=== PATIENT | female | born 1975 | race Caucasian/White ===

== ENCOUNTER 2019-07-15 09:31 | Outpatient (CLI) | payer BC | END 2019-07-15 09:32 | disposition home or self-care (01) | LOC: DTY/OP 09:31 | PROVIDERS: ATTEND Specialist | DX: Z01.818 Encounter for other preprocedural examination (principal); E66.01 Morbid (severe) obesity due to excess calories | CPT/HCPCS: 97802 ==

== ENCOUNTER 2019-07-26 07:46 | Outpatient (CLI) | payer BC ==
--- NOTE | 2019-07-26 10:06 | RAD ---
Upper GI series with double contrast: DATE: 07/26/2019 HISTORY: 44-year-old female with gastroesophageal reflux disease. Presurgical planning study for bariatric niranjan ronnie for "morbid obesity due to excess calories ICD-10: E 66.01." TECHNIQUE: Upright administration of effervescent granules and thick liquid barium. Prone WEISS straw administrati on of thin liquid barium. FINDINGS: Esophagus, stomach, and duodenal bulb, have normal motility, distensibility, and mucosal pattern. No moderate sized or large hiatal hernia. No gastroesophageal reflux witnessed. No large neoplastic tumor mass identified. Limited visualization of mucosal pattern; no gross mucosal abnormality identif ied IMPRESSION: Negative.
--- NOTE | 2019-07-26 14:21 | EKG ---
Test Reason : Blood Pressure : / mmHG Vent. Rate : 076 BPM Atrial Rate : 076 BPM P-R Int : 144 ms QRS Dur : 076 ms QT Int : 358 ms P-R-T Axes : 050 027 035 degrees QTc Int : 402 ms Normal sinus rhythm Normal ECG No previous ECGs available Confirmed by DR. Finn WARREN ([id number]) on 07/26/2019 2:21:23 PM Referred By: DAYNA Confirmed By:DR. Finn WARREN
== END 2019-07-26 07:47 | disposition home or self-care (01) ==
LOC: RAD 07:46
PROVIDERS: ATTEND Specialist
DX: E66.01 Morbid (severe) obesity due to excess calories (principal)
CPT/HCPCS: 74247; 93005; 93010

== ENCOUNTER 2019-08-30 11:30 | Inpatient (IN) | payer BC ==
[2019-09-02 09:10] VITALS: BMI 49.6
--- NOTE | 2019-09-03 07:47 | HP ---
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 She has struggled with weight all of her life. Her most recent weight was 331 pounds in December of this year, but she has intentionally lost weight down to 302 pounds, currently 53 BMI. She has comorbidities of high blood pressure and GERD, takes Nexium. Diabetes mellitus. She sees an freezer machine operator, has been on different oral hypoglycemics, but has suffered side effects and currently, has managed her diabetes with her diet and food choices. Her Accu-Chek today this morning was 151, which she usually runs in that range. She has had diarrhea with metformin and other side effects from other oral hypoglycemic medications. Endocrinology is planning on trying some other medications later. She does have chronic low back pain. She had a sleep study in 2014 that did not show sleep apnea. She has significant reflux, requires Nexium. Family history is significant for diabetes mellitus and hypertension with her dad. Her mother had high blood pressure. Maternal grandfather had colon cancer. The patient does smoke up to a pack a day, but recently has cut down to half a pack a day. She is trying to quit. She has attended our bariatric seminar. She understands that tobacco cessation is a must. She desires laparoscopic gastric bypass due to her significant reflux and diabetes. She understands that she will have to continue to stop smoking after such surgery due to risk of ulcerations, bleedings, strictures, etc. She has had a past hysterectomy, umbilical hernia repair, cholecystectomy, and bunionectomy. Tobacco, half pack per day down to a pack a day, trying to stop. She has stopped in the past, but Chantix causes side effects such as nausea, difficult to take. MEDICATIONS: 1. Nexium 40 mg a day. 2. Candesartan-hydrochlorothiazide daily. 3. Unithroid 112 mcg a day. 4. Vitamin D 2000 mg once a day. 5. Probiotic daily. 6. Fioricet as needed. ALLERGIES: IMITREX, ADHESIVES, AND BAND-AIDS. METFORMIN, DIARRHEA, SIDE EFFECTS. PAST SURGICAL HISTORY: As noted above; total abdominal hysterectomy, cholecystectomy, foot surgery, and umbilical hernia repair. PAST MEDICAL HISTORY: Hypertension, GERD, diabetes mellitus, and low back pain. REVIEW OF SYSTEMS: Ten-point noncontributory. PHYSICAL EXAMINATION: VITAL SIGNS: 5 feet 3 inches, 302 pounds, 53.5 BMI. HEAD, EARS, EYES, NOSE, AND THROAT: Unremarkable. LUNGS: Clear to auscultation. CARDIAC: Regular rate and rhythm without murmur or gallop. ABDOMEN: Soft, obese, nontender. Umbilical hernia repair intact. EXTREMITIES: Unremarkable. No ankle edema. ASSESSMENT AND PLAN: 1. Morbid obesity, metabolic syndrome. The patient has comorbidities of hypertension, gastroesophageal reflux disease. Requires PPIs, Nexium on a daily basis to control this and diabetes mellitus with multiple side effects. Work with her freezer machine operator to control this. She has chronic low back pain due to obesity. I would expect her with significant weight loss to resolve her comorbidities and have a more productive life. She is willing to quit smoking. She understands risks associated with bariatric surgery. Questions have been answered. Plan would have her visit the dietitian, obtain baseline laboratories and EKG. See our psychologist and plan for laparoscopic gastric bypass. Risks and benefits of the surgery discussed. The patient has tried numerous weight loss efforts and been unsuccessful. She is dedicated to a successful outcome about keeping followup appointments, attending bariatric support groups, and followup. There is no benefit of supervised weight loss, and I would not recommend that for her. She has already tried numerous weight loss efforts on her own without durable success. She has already lost significant weight 331 pounds to 302 pounds in preparation for bariatric surgery. 1. Diabetes mellitus. 2. Hypertension. 3. Gastroesophageal reflux disease. 4. Low back pain. Job ID: [id number]
--- NOTE | 2019-09-03 07:58 | HP ---
ADDENDUM: Addendum to history and physical #[id number], dictated 06/27/2019. HISTORY OF PRESENT ILLNESS: Kaela Roberts is a 44-year-old female with morbid obesity. Initially when I saw her, 302 pounds, 5 feet 3 inches, BMI 58. Today, 277 pounds, 49 BMI, weight loss since I have seen her 24.5 pounds, preparing for surgery. She has had her laboratories performed. Vitamin D level is slightly low and she has been replaced. Her hemoglobin A1c was markedly elevated over 12 and she had diabetic medications adjusted. Her Accu-Cheks have been normal and her glucose is in better control. She is followed by Dr. Chavez. She does have comorbidities of GERD, diabetes mellitus, non-insulin dependent, hypertension and anxiety. Plan is for laparoscopic gastric bypass. She understands risks and benefits. She has met with our psychologist, felt to be an excellent candidate. Upper GI was normal. Dietary visit was informative and patient benefitted greatly. Her Accu-Cheks are 90-110 since starting her medications. ALLERGIES: IMITREX. SOCIAL HISTORY: Tobacco, none. Alcohol, none. Tobacco cessation. PAST MEDICAL HISTORY: Diabetes, hypothyroidism, vitamin D deficiency, been replacing treatment, hypertension and GERD. PAST SURGICAL HISTORY: Hysterectomy in 2006, bunionectomy 2015, cholecystectomy 2014, and hernia repair in the past. MEDICATIONS: Vitamin D, , butalbital, metformin 500 a day, Synthroid, L-thyroxine 112 mcg daily, Lanoxin, omeprazole 40 mg a day, candesartan cilexetil/hydrochlorothiazide 32/25 mg, and Ozempic. PHYSICAL EXAMINATION: VITAL SIGNS: Weight 277 pounds, 49 BMI, height 5 feet 3 inches. When I 1st saw her on June, 5 feet 3 inches, 302 pounds, 53 BMI. HEAD EARS EYES, NOSE AND THROAT: Unremarkable. LUNGS: Clear to auscultation. CARDIAC: Regular rate and rhythm without murmur or gallop. ABDOMEN: Soft and nontender. No hernias. EXTREMITIES: Unremarkable. ASSESSMENT AND PLAN: Morbid obesity with comorbidities as listed. She has seen our dietitian, psychologist, had an upper GI and her glucose is under control. We will check hemoglobin A1c postoperatively. PLAN: Laparoscopic sleeve gastrectomy. Questions answered. Consent signed. Risks and benefits reviewed. Job ID: [id number]
[2019-09-04] MEDS ORDERED: PROPOFOL 200 MG/20 ML VIAL ONE (12:36)
[2019-09-04] MEDS ORDERED: Ondansetron PF 4 MG/2 ML Vial ONE (12:36)
[2019-09-04] MEDS ORDERED: Glycopyrrolate 0.2 MG/ML 5 ML SYRINGE ONE (12:36)
[2019-09-04] MEDS ORDERED: Rocuronium Bromide 10 MG/ML (10ML VIAL) ONE (12:36)
[2019-09-04] MEDS ORDERED: Ketorolac Tromethamine 30 MG/ML VIAL ONE (12:39)
[2019-09-04] MEDS ORDERED: Heparin 5,000 UNITS/ML VIAL ONE (12:39)
[2019-09-04] MEDS ORDERED: Scopolamine 1.5 mg/72 hour Patch ONE (12:39)
[2019-09-04] MEDS ORDERED: ceFOXitin 2 GM/50 ML Duplex BAG ONE (12:40)
[2019-09-04] MEDS ORDERED: Naloxone HCl 0.4 mg/ml Vial IV PRN (12:43)
[2019-09-04] MEDS ORDERED: fentaNYL Citrate/PF 2,000 MCG in Sodium Chloride 0.9% 60 ML IV PRN (12:43)
[2019-09-04] MEDS ORDERED: Ondansetron PF 4 MG/2 ML Vial IVP PRN ×2 (12:43→13:08)
[2019-09-04] MEDS ORDERED: diphenhydrAMINE 50 MG/ML VIAL IVP PRN ×2 (12:43→13:08)
[2019-09-04] MEDS ORDERED: diphenhydrAMINE 25 MG CAP PO PRN (12:43)
[2019-09-04] MEDS ORDERED: diphenhydrAMINE 50 MG/ML VIAL IM PRN (12:43)
[2019-09-04] MEDS ORDERED: Zolpidem Tartrate 5 MG TAB PO PRN (12:43)
[2019-09-04] MEDS ORDERED: Promethazine HCl 25 MG/ML VIAL IM PRN ×2 (12:43→12:44)
[2019-09-04] MEDS ORDERED: Ondansetron HCl/PF 4 MG/2 ML Vial IVP PRN (12:44)
[2019-09-04] MEDS ORDERED: Promethazine HCl 25 MG/ML VIAL SLOW IVP PRN (12:44)
[2019-09-04] MEDS ORDERED: Communication Order-Pharmacy FS SCH (12:45)
[2019-09-04] MEDS ORDERED: Lidocaine 1% w/Epinephrine 1:100K 20 ML VIAL ONE (12:46)
[2019-09-04] MEDS ORDERED: Bupivacaine PF 0.5% 30 ML VIAL ONE (12:46)
[2019-09-04] MEDS ORDERED: Midazolam HCl 2 mg/2 ml Vial ONE (13:00)
[2019-09-04] MEDS ORDERED: Fentanyl 250 MCG/5 ML VIAL ONE (13:00)
[2019-09-04] MEDS ORDERED: hydrALAZINE 20 MG/ML VIAL SLOW IVP PRN (13:08)
[2019-09-04] MEDS ORDERED: Dextrose 50% Abboject 50 ML SYRINGE SLOW IVP PRN (13:08)
[2019-09-04] MEDS ORDERED: Acetaminophen 325 MG/10.15 ML UDCUP PO PRN (13:08)
[2019-09-04] MEDS ORDERED: Morphine 4 MG/ML VIAL SLOW IVP PRN (13:08)
[2019-09-04] MEDS ORDERED: HumaLOG 300 UNITS/3 ML VIAL SC PRN (13:08)
[2019-09-04] MEDS ORDERED: Dextrose 5% in Water 1,000 ML IV PRN (13:08)
[2019-09-04] MEDS ORDERED: Hydrocodone-Acetamin 15 ML UDCUP PO PRN (13:08)
[2019-09-04] MEDS ORDERED: Acetaminophen 1,000 MG in Premix Bag 1 BAG IVPB SCH (13:15)
[2019-09-04] MEDS ORDERED: Fentanyl 100 MCG/2 ML VIAL ONE ×2 (15:58→16:54)
[2019-09-04] MEDS ORDERED: Promethazine HCl 25 MG/ML VIAL ONE (16:33)
--- NOTE | 2019-09-04 16:53 | OP ---
DATE OF PROCEDURE: 09/04/2019 PREOPERATIVE DIAGNOSIS: Morbid obesity, gastroesophageal reflux disease, diabetes mellitus, hypertension, 302 pounds, 58 BMI. Initial consultation preoperatively, 277 pounds, 49 BMI. PROCEDURE PERFORMED: Laparoscopic Ann Marie-en-Y gastric bypass, antecolic, 150 cm Ann Marie limb, 25 mm EEA stapler, checked under water and no leak. STREET SWEEPER: Dr. Mccall. ANESTHESIA: General anesthesia, local 0.5% Marcaine 30 mL, 1% Xylocaine with epinephrine 30 mL, total volume mixture used. DESCRIPTION OF PROCEDURE: The patient was taken to the operating room, where under general anesthesia, abdomen was prepared with ChloraPrep and draped in routine fashion. Local anesthetic was infiltrated into the skin and subcutaneous tissue about each port site. Supraumbilical incision was made. Pneumoperitoneum to 15 mmHg was obtained with a Veress needle, replaced with a 5 port, laparoscope inserted. Subxiphoid incision was made, and left lobe of the liver retracted anteriorly with Grace liver retractor in place with Dash's arm. Bilateral far lateral stab incision was made, and 5 port was placed. Bilateral upper abdominal incision was made in midclavicular lines, on the left 15 mm port, and on the right 12 mm port was placed. There were some omental adhesions toward the pelvis taken down with the LigaSure. Adhesions on the left side left in place. Omentum split in the middle up to the transverse colon just to the left of the falciform ligament. The ligament of Treitz identified and about 20 cm from the ligament of Treitz, small bowel was divided with 2 fires of the white load ISREAL stapler, initially dividing the bowel and the mesenteric gained hemostasis with LigaSure. Ann Marie limb devascularized about 5 cm. 150 cm Ann Marie limb measured in a jejunojejunostomy form using a single fire of the white low stapler, closing the common defect with 2 fires of the white load stapler. Mesenteric defect was closed with two [id number] sutures of 3-0 Vicryl. The patient was placed in deep reverse Trendelenburg, and the Ann Marie limb measured for the jejunojejunostomy for proper orientation and brought up to the left upper quadrant. Attention was then turned to the upper abdomen, where the angle of His was dissected free, and then the gastrocolic ligament measured about 5 cm along the lesser curvature and the lesser sac entered from the lesser curvature, and all gastric tubes and probes were removed and initial fire of the blue load stapler formed transversely to form the pouch. The gastrostomy was made just inferior and lateral this along the gastric greater curvature, and a 25 mm anvil placed and directed up to the gastric pouch. It was pexed to a 2-0 Vicryl suture, which was threaded through a band Passer passed up into the gastric pouch and the defect was made with a cutting current just anterior to the mid staple line initially fired. The anvil brought out and probably oriented, then the gastrostomy closed with 2 fires of the ISREAL blue load stapler. The gastric pouch was completed with partitioning destin of blue load directed cephalad, forming the left lateral pouch avoiding the angle of His. Once the stomach was clearly divided, there was some oozing near the upper splenic hilum and this was controlled with FloSeal and Surgicel. Good hemostasis noted. At this point, the devascularized Ann Marie limb was opened and a 25 mm stapler was placed through the 15 mm port site in the left upper abdomen, advanced and placed in the devascularized bowel and the post brought out through the antimesenteric border. It was mated to the anvil and the gastric pouch approximated within a torque fire range. It was fired, loosened, and removed. Donuts were intact. The devascularized end of the Ann Marie limb was then divided, neck resected with 2 fires of the ISREAL white load stapler. This was removed. Calin bowel clamp was placed laparoscopically occluding the outlet Ann Marie Limb from the gastrojejunostomy and gastric tube placed by Anesthesia across the gastrojejunostomy, visualized laparoscopically, and placement was placed relatively supine. Saline placed and this was insufflated with air, distended nicely, and there was no leak. Seromuscular sutures of 3-0 Vicryl were placed right posterolateral, right anterolateral, and left lateral to secure the gastrojejunostomy. Good hemostasis noted. The spleen was inspected, noted to be hemostatic. The patient tolerated the procedure well. A pmswie-pb-fqnmv suture was placed in the 15 mm port site in the left upper quadrant, closing this abdominal defect and then this wound copiously irrigated and all irrigant pneumoperitoneum evacuated, liver tractor was removed. All skin incisions were approximated with interrupted subdermal 4-0 Monocryl and Niotaze glue applied. Job ID: [id number]
[2019-09-04] MEDS ORDERED: Acetaminophen 1,000 MG in Premix Bag 1 BAG IVPB PRN (17:55)
[2019-09-04] MEDS ORDERED: Ketorolac Tromethamine 30 MG/ML VIAL IVP PRN (17:55)
[2019-09-04] MEDS ORDERED: Ketorolac Tromethamine 30 MG/ML VIAL IVP SCH ×2 (18:00)
[2019-09-04] MEDS: 1/2 NS w/KCL 20 mEq 1,000 ML IV SCH ×3 (18:49→21:55)
[2019-09-04] MEDS: Morphine 2 MG/ML SYRINGE SLOW IVP PRN ×2 (19:55→23:02)
[2019-09-04 20:01] LABS: #Basophils 0.1 thou/uL (0.0-0.2); #Lymphocytes 1.5 thou/uL (1.20-3.40); #Monocytes 0.7 thou/uL (0.11-0.59); #Neutrophils 13.1 thou/uL (1.40-6.50); %Basophils 0.3 % (0.0-1.0); %Eosinophils 0.1 % (0.0-10.0); %Monocytes 4.2 % (0.0-10.0); %Neutrophils 85.3 % (42.0-75.0); Hemoglobin 15.4 g/dL (12.0-16.0); Mean Corpuscular HGB CONC 33.6 g/dL (32.0-36.0); Mean Corpuscular Hemoglobin 31.8 pg (27.0-31.0); Mean Corpuscular Volume 94.7 fL (78.0-98.0); Mean Platelet Volume 6.9 fL (7.4-10.4); Platelet Count 317 thou/uL (130-400); RBC Distribution Width 12.1 % (11.5-14.5); Red Blood Cell (RBC) Count 4.85 mill/uL (4.20-5.40); White Blood Cell (WBC) Count 15.3 thou/uL (4.8-10.8)
[2019-09-04] MEDS ORDERED: Enoxaparin Sodium 40 MG/0.4 ML SYRINGE SC SCH (21:00)
[2019-09-04] MEDS: Acetaminophen 1,000 MG in Premix Bag 1 BAG IVPB SCH (23:02)
[2019-09-05] MEDS: Morphine 2 MG/ML SYRINGE SLOW IVP PRN ×2 (03:50→05:46)
[2019-09-05 04:57] LABS: #Basophils 0.1 thou/uL (0.0-0.2); #Lymphocytes 3.1 thou/uL (1.20-3.40); #Monocytes 1.5 thou/uL (0.11-0.59); #Neutrophils 9.5 thou/uL (1.40-6.50); %Basophils 0.6 % (0.0-1.0); %Eosinophils 0.2 % (0.0-10.0); %Lymphocytes 21.9 % (21.0-51.0); %Monocytes 10.4 % (0.0-10.0); %Neutrophils 66.9 % (42.0-75.0); Hemoglobin 13.6 g/dL (12.0-16.0); Mean Corpuscular HGB CONC 33.8 g/dL (32.0-36.0); Mean Corpuscular Volume 94.7 fL (78.0-98.0); Mean Platelet Volume 6.8 fL (7.4-10.4); Platelet Count 306 thou/uL (130-400); RBC Distribution Width 12.1 % (11.5-14.5); Red Blood Cell (RBC) Count 4.27 mill/uL (4.20-5.40); White Blood Cell (WBC) Count 14.1 thou/uL (4.8-10.8)
[2019-09-05 05:00] LABS: Hemoglobin A1c 11.2 % (4.0-6.0)
[2019-09-05 05:17] LABS: Anion Gap 10 mmol/L (10-20); BUN (Urea Nitrogen) 9 mg/dL (7.0-18.7); Calc. Creatinine Clearance 158 mL/min (70-130); Calcium 8.6 mg/dL (7.8-10.44); Carbon Dioxide 26 mmol/L (22-29); Chloride 106 mmol/L (98-107); Estimated GFR-MDRD 66; Glucose 104 mg/dL (70-105); Potassium 4.3 mmol/L (3.5-5.1); Sodium 138 mmol/L (136-145)
[2019-09-05] MEDS: Acetaminophen 1,000 MG in Premix Bag 1 BAG IVPB SCH (05:47)
[2019-09-05] MEDS ORDERED: Levothyroxine Sodium 112 MCG TAB PO SCH (06:00)
[2019-09-05 08:09] VITALS: TEMP 97.9
[2019-09-05] MEDS ORDERED: Pantoprazole 40 MG VIAL IVP SCH (09:00)
[2019-09-05] MEDS ORDERED: Hydrocodone-Acetamin 15 ML UDCUP PO PRN (09:45)
[2019-09-05 12:04] VITALS: BP 116/75
[2019-09-05] MEDS ORDERED: Acetaminophen 325 MG/10.15 ML UDCUP PO PRN (23:59)
--- NOTE | 2019-09-06 03:17 | DIS ---
DATE OF ADMISSION: 09/04/2019 DATE OF DISCHARGE: 09/05/2019 DISCHARGE DIAGNOSES: Morbid obesity, 5 feet 3 inches, 302 pounds, 58 BMI, initial encounter, preoperative evaluation after initial weight loss efforts preoperatively, 277 pounds, 49 BMI, diabetes mellitus, reflux, hypertension, hemoglobin A1c 12, decreased to 11, glucoses Accu-Cheks preop less than 110-120. PROCEDURES: Laparoscopic Ann Marie-en-Y gastric bypass, antecolic, 150 cm Ann Marie limb, 25 mm EEA stapler. Completion upper endoscopy. HISTORY: A 44-year-old female, presents for our bariatric seminar, preoperative weight loss evaluation, underwent the above operation. Postop, did well. Labs looked normal. Accu-Cheks 110-120. Discharge home to follow the postoperative bariatric routine, resuming medications, vitamin D3, Nexium, candesartan, hydrochlorothiazide, Ozempic, levothyroxine. She will follow up in my office in 1 to 2 weeks. Encouraged her to take adequate liquids. No lifting restrictions. Job ID: [id number]
== END 2019-09-05 12:30 | disposition home or self-care (01) | DRG 620 ==
LOC: SURG A 09-04 12:04 → SURG B 09-04 18:16
PROVIDERS: ADMIT Specialist; ATTEND Specialist
PROC: 0D164ZA Bypass Stomach to Jejunum, Percutaneous Endoscopic Approach (ICD-10-PCS; principal; 2019-09-04)
DX: E88.81 Metabolic syndrome and other insulin resistance (principal); Z68.43 Body mass index [BMI] 50.0-59.9, adult; E66.01 Morbid (severe) obesity due to excess calories; K21.9 Gastro-esophageal reflux disease without esophagitis; E11.9 Type 2 diabetes mellitus without complications; I10 Essential (primary) hypertension; F17.210 Nicotine dependence, cigarettes, uncomplicated; M54.5 Low back pain; E03.9 Hypothyroidism, unspecified; E55.9 Vitamin D deficiency, unspecified; G89.29 Other chronic pain; Z90.49 Acquired absence of other specified parts of digestive tract; Z90.710 Acquired absence of both cervix and uterus; Z79.899 Other long term (current) drug therapy; Z79.84 Long term (current) use of oral hypoglycemic drugs; Z88.8 Allergy status to other drugs, medicaments and biological substances; Z91.048 Other nonmedicinal substance allergy status; Z79.890 Hormone replacement therapy
CPT/HCPCS: 36415; 36416; 80048; 83036; 85025; 86850; 86900; 86901; J0131; J0694; J1644; J1650; J1885; J2250; J2270; J2405; J2550; J2704; J3010; J3480; S0020

== ENCOUNTER 2019-09-02 06:47 | Outpatient (CLI) | payer BC ==
[2019-09-02 11:30] LABS: Anion Gap 14 mmol/L (10-20); BUN (Urea Nitrogen) 8 mg/dL (7.0-18.7); Calc. Creatinine Clearance 0 mL/min (70-130); Carbon Dioxide 27 mmol/L (22-29); Chloride 103 mmol/L (98-107); Estimated GFR-MDRD 70; Glucose 128 mg/dL (70-105); Potassium 4.5 mmol/L (3.5-5.1); Sodium 139 mmol/L (136-145)
== END 2019-09-02 06:48 | disposition home or self-care (01) ==
LOC: LABBT 06:47
PROVIDERS: ATTEND Specialist
DX: Z01.812 Encounter for preprocedural laboratory examination (principal); E66.01 Morbid (severe) obesity due to excess calories; Z68.43 Body mass index [BMI] 50.0-59.9, adult
CPT/HCPCS: 80048

== ENCOUNTER 2019-09-06 14:54 | Observation (INO) | payer BC ==
[2019-09-06 16:44] VITALS: BMI 49.0
[2019-09-06] MEDS ORDERED: Ondansetron PF 4 MG/2 ML Vial IVP PRN (17:40)
[2019-09-06] MEDS ORDERED: Ondansetron ODT 8 MG TAB PO PRN (17:40)
[2019-09-06] MEDS ORDERED: Ondansetron ODT 4 MG TAB PO PRN (17:40)
[2019-09-06] MEDS ORDERED: Morphine 4 MG/ML VIAL SLOW IVP PRN (17:40)
[2019-09-06] MEDS ORDERED: Morphine 2 MG/ML SYRINGE SLOW IVP PRN (17:40)
[2019-09-06] MEDS ORDERED: Ondansetron ODT 8 MG TAB SL PRN (17:40)
[2019-09-06] MEDS ORDERED: Acetaminophen 1,000 MG in Premix Bag 1 BAG IVPB PRN (17:40)
[2019-09-06] MEDS ORDERED: Acetaminophen 650 MG/20.3 ML UDCUP PO PRN (17:43)
[2019-09-06] MEDS ORDERED: Ondansetron PF 4 MG/2 ML Vial IVP SCH (17:45)
[2019-09-06] MEDS ORDERED: Sodium Chloride 0.9% 2,000 ML IV SCH (17:45)
[2019-09-06 17:50] LABS: #Basophils 0.1 thou/uL (0.0-0.2); #Eosinphils 0.2 thou/uL (0.0-0.7); #Lymphocytes 3.4 thou/uL (1.20-3.40); #Monocytes 1.1 thou/uL (0.11-0.59); #Neutrophils 6.3 thou/uL (1.40-6.50); %Basophils 0.5 % (0.0-1.0); %Eosinophils 2.2 % (0.0-10.0); %Lymphocytes 30.8 % (21.0-51.0); %Monocytes 10.2 % (0.0-10.0); %Neutrophils 56.3 % (42.0-75.0); Hemoglobin 13.1 g/dL (12.0-16.0); Mean Corpuscular HGB CONC 33.3 g/dL (32.0-36.0); Mean Platelet Volume 6.8 fL (7.4-10.4); Platelet Count 253 thou/uL (130-400); Red Blood Cell (RBC) Count 4.08 mill/uL (4.20-5.40); White Blood Cell (WBC) Count 11.2 thou/uL (4.8-10.8)
[2019-09-06 18:15] LABS: Anion Gap 11 mmol/L (10-20); BUN (Urea Nitrogen) 4 mg/dL (7.0-18.7); Calc. Creatinine Clearance 194 mL/min (70-130); Calcium 8.8 mg/dL (7.8-10.44); Carbon Dioxide 28 mmol/L (22-29); Chloride 104 mmol/L (98-107); Estimated GFR-MDRD 85; Glucose 94 mg/dL (70-105); Potassium 3.9 mmol/L (3.5-5.1); Sodium 139 mmol/L (136-145)
[2019-09-06] MEDS: Ketorolac Tromethamine 30 MG/ML VIAL IVP PRN (19:42)
[2019-09-06] MEDS: Sodium Chloride 0.9% 1,000 ML IV SCH (19:45)
[2019-09-06] MEDS: Enoxaparin Sodium 40 MG/0.4 ML SYRINGE SC SCH (20:32)
[2019-09-07] MEDS ORDERED: Dextrose 5% in Water 1,000 ML IV PRN (00:09)
[2019-09-07] MEDS ORDERED: Dextrose 50% Abboject 50 ML SYRINGE SLOW IVP PRN (00:09)
[2019-09-07] MEDS ORDERED: Insulin Regular 300 UNITS/3 ML VIAL SC PRN (00:09)
--- NOTE | 2019-09-07 00:10 | HP ---
HISTORY OF PRESENT ILLNESS: Kaela Roberts is a 44-year-old female, who 2 days ago underwent a laparoscopic gastric bypass, 150 cm Ann Marie limb, antecolic, 25 mm stapler. She was observed overnight. Discharged home yesterday, tolerating liquids. She states this morning she could not hold down liquids, everything she swallowed seemed to come back up. She tried her Lortab elixir and could not tolerate that. She is having the same pain that she woke up with after surgery, epigastric pain, back radiation, more in right abdomen. She denies any fever. For past history, see her recent history and physical. PHYSICAL EXAMINATION: VITAL SIGNS: Height 5 feet 3 inches, 49 BMI, 277 pounds, temperature 98 degrees, pulse 85, blood pressure 132/90. LUNGS: Clear to auscultation. CARDIAC: Regular rate and rhythm without murmur or gallop. ABDOMEN: Soft. Surgical laparoscopic trocar incisions well healed. No evidence of infection. Bowel sounds present. EXTREMITIES: Unremarkable. LABORATORY DATA: White count is 11, hemoglobin 13. Basic metabolic profile is pending. ASSESSMENT AND PLAN: Postoperative oral intake intolerance. Clinically, she is doing well otherwise. I do not think she needs a CAT scan or other imaging study. At this point, we will continue her Lovenox. She can have ice chips. She can be advance trial liquids again when she feels ready hopefully by later tonight or tomorrow. Hopefully, she will be ready to go home if tolerating her liquids tomorrow, Monday, but she may need a day. She is in the hospital observation status. Pending clinical course, she may need a CAT scan, we will reserve her and repeat her labs tomorrow. Job ID: [id number]
--- NOTE | 2019-09-07 00:47 | PRG ---
DATE OF SERVICE: SUBJECTIVE: The patient was seen this evening during rounds. Trauma is covering, Dr. Britton's patient, over the weekend. The patient was readmitted today. She is postoperative day 2, status post laparoscopic gastric bypass. She was readmitted for nausea and vomiting. At the time of my evaluation, the patient was resting comfortably. She reported her pain was well controlled. Denied nausea or vomiting. She is on a bariatric clear liquid diet. OBJECTIVE: VITAL SIGNS: Temperature 98.5, pulse 83, respirations 16, oxygen saturation 93% on room air, and blood pressure 110/72. GENERAL: Well-appearing middle-aged female, lying in bed with no signs of acute distress. PULMONARY: Equal chest rise and fall. No signs of acute respiratory distress. ASSESSMENT: 1. Postoperative day 2, status post laparoscopic gastric bypass with nausea and vomiting, now improved. 2. History of diabetes, reflux, and hypertension. PLAN: Continue current pain regimen. Continue bariatric clear liquid diet. We will consult Walking Program for the patient, so the patient can start to mobilize. Job ID: [id number]
[2019-09-07] MEDS: Sodium Chloride 0.9% 1,000 ML IV SCH ×2 (01:00→02:16)
[2019-09-07 05:16] LABS: #Eosinphils 0.3 thou/uL (0.0-0.7); #Lymphocytes 3.5 thou/uL (1.20-3.40); #Monocytes 0.8 thou/uL (0.11-0.59); %Basophils 0.4 % (0.0-1.0); %Lymphocytes 40.6 % (21.0-51.0); %Monocytes 9.3 % (0.0-10.0); %Neutrophils 46.6 % (42.0-75.0); Hemoglobin 11.3 g/dL (12.0-16.0); Mean Corpuscular HGB CONC 33.5 g/dL (32.0-36.0); Mean Corpuscular Hemoglobin 32.1 pg (27.0-31.0); Mean Corpuscular Volume 95.7 fL (78.0-98.0); Mean Platelet Volume 6.9 fL (7.4-10.4); Platelet Count 228 thou/uL (130-400); RBC Distribution Width 12.2 % (11.5-14.5); Red Blood Cell (RBC) Count 3.51 mill/uL (4.20-5.40); White Blood Cell (WBC) Count 8.6 thou/uL (4.8-10.8)
[2019-09-07 05:34] LABS: Phosphorus 3.7 mg/dL (2.3-4.7)
[2019-09-07 05:35] LABS: Anion Gap 11 mmol/L (10-20); BUN (Urea Nitrogen) 5 mg/dL (7.0-18.7); Calc. Creatinine Clearance 194 mL/min (70-130); Carbon Dioxide 23 mmol/L (22-29); Chloride 109 mmol/L (98-107); Estimated GFR-MDRD 85; Glucose 81 mg/dL (70-105); Magnesium 1.6 mg/dL (1.6-2.6); Potassium 3.7 mmol/L (3.5-5.1); Sodium 139 mmol/L (136-145)
[2019-09-07] MEDS: Ketorolac Tromethamine 30 MG/ML VIAL IVP PRN (06:38)
[2019-09-07] MEDS ORDERED: Pantoprazole 40 MG VIAL IVP SCH (09:00)
[2019-09-07] MEDS: Enoxaparin Sodium 40 MG/0.4 ML SYRINGE SC SCH (09:12)
[2019-09-07] MEDS ORDERED: Hydrocodone-Acetamin 15 ML UDCUP PO PRN ×2 (11:49→11:50)
[2019-09-07 12:22] VITALS: BP 125/85; TEMP 98.3
--- NOTE | 2019-09-07 12:52 | PRG ---
DATE OF SERVICE: 09/07/2019 This is Johanne Carney NP dictating a report for Dr. Jung. SUBJECTIVE: The patient was seen this morning during rounds with Dr. Jung. The patient is postop day #3 status post laparoscopic gastric bypass. The patient was readmitted yesterday for nausea and vomiting. The patient is currently awake, alert, sitting up in the hospital chair. The patient has not had any nausea or vomiting since yesterday. The patient has been tolerating her bariatric clear liquid diet. The patient's pain is well controlled at this time. OBJECTIVE: VITAL SIGNS: Blood pressure 120/81, temperature 98.1, pulse 69, respirations 16, SpO2 of 97% on room air. GENERAL: Well-appearing, middle-aged female, sitting up in hospital chair, no acute distress. PULMONARY: Equal chest rise and fall, no respiratory distress. Breathing is nonlabored. CARDIAC: Regular rate, regular rhythm. ABDOMEN: Soft, nontender, laparoscopic incisions are well healed. EXTREMITIES: Unremarkable. LABORATORY DATA: WBC 8.6, RBC 3.51, hemoglobin 11.3, hematocrit 33.6, platelets 228. Sodium 139, potassium 3.7, chloride 109, BUN 5, creatinine 0.75, estimated GFR 85, glucose 81, calcium 8.0, phosphorus 3.7, magnesium 1.6. DIAGNOSTICS: There are no new diagnostics to review today. PLAN: Continue supportive care. We will discontinue IV pain regimen and place on p.o. elixir, Snyder. We will continue bariatric clear liquid diet and add Glucerna. Continue to have the patient walk frequently with walking program. If the patient's pain is well controlled with p.o. medications and tolerates her clear liquid diet, the patient maybe able to be discharged home tomorrow on a full liquid diet. The patient was examined by Dr. Jung. The plan was discussed with the patient, who agrees. Job ID: [id number]
[2019-09-07] MEDS ORDERED: Acetaminophen 325 MG/10.15 ML UDCUP PO PRN (13:27)
[2019-09-07] MEDS ORDERED: Fioricet 325/50/40 mg Tablet PO PRN (13:27)
[2019-09-07] MEDS ORDERED: Semaglutide [Ozempic] 1 MG SC SCH (14:00)
--- NOTE | 2019-09-07 14:39 | DIS ---
DATE OF ADMISSION: 09/06/2019 DATE OF DISCHARGE: 09/07/2019 This is Johanne Carney NP dictating a report for Dr. Jung. ADMITTING SURGEON: Dr. Britton. DISCHARGE ATTENDING: Dr. Jung. PROCEDURES: None. PRIMARY DIAGNOSIS: Postoperative oral intake intolerance. SECONDARY DIAGNOSIS: Postop day 2 laparoscopic gastric bypass. DISCHARGE MEDICATIONS: Tylenol with codeine elixir p.o. q.4 hours, Zofran HISTORY OF PRESENT ILLNESS AND HOSPITAL COURSE: This is a 44-year-old female, who was admitted by Dr. Britton yesterday, who is status post laparoscopic gastric bypass. The patient was observed overnight and then discharged, tolerating liquids. The next day, the patient was unable to hold down liquids, everything she swallowed seemed to come back up. She tried taking her Lortab elixir and could not tolerate that. The patient had no fever. The patient was admitted with bowel rest. Advance to trial liquids. The patient tolerated liquids overnight. The patient's repeat labs were unremarkable. WBC 8.6, RBC 3.51, hemoglobin 11.3, hematocrit 33.6. On the day of discharge, the patient was examined by Dr. Jung. The patient tolerated a full liquid diet and pain was well controlled. The patient had not had any nausea or vomiting since yesterday. The patient's exam was unremarkable including cardiopulmonary and GI exam. The patient was deemed stable for discharge home. DISPOSITION: Stable. DISCHARGE INSTRUCTIONS: 1. Location: Home. 2. Diet: Full liquid bariatric diet. 3. Activity: As tolerated. 4. Follow up with Dr. Britton as directed. Job ID: [id number] MTDD
[2019-09-07] MEDS ORDERED: metFORMIN 500 MG TAB PO SCH (17:00)
[2019-09-08] MEDS ORDERED: Levothyroxine Sodium 112 MCG TAB PO SCH (06:00)
[2019-09-08] MEDS ORDERED: Hydrochlorothiazide 25 MG TAB PO SCH (09:00)
[2019-09-08] MEDS ORDERED: Non-Formulary Item 1 EACH (Esomeprazole Magnesium [Nexium] 40 MG) PO SCH (09:00)
[2019-09-08] MEDS ORDERED: Losartan 25 MG TAB PO SCH (09:00)
== END 2019-09-07 15:23 | disposition home or self-care (01) ==
LOC: SURG A 15:50
PROVIDERS: ADMIT Specialist; ATTEND Specialist
DX: K91.0 Vomiting following gastrointestinal surgery (principal); E11.9 Type 2 diabetes mellitus without complications; K21.9 Gastro-esophageal reflux disease without esophagitis; I10 Essential (primary) hypertension; Z79.84 Long term (current) use of oral hypoglycemic drugs; Z79.899 Other long term (current) drug therapy; Z88.8 Allergy status to other drugs, medicaments and biological substances; Z91.048 Other nonmedicinal substance allergy status; Z98.84 Bariatric surgery status
CPT/HCPCS: 36415; 36416; 80048; 83735; 84100; 85025; 96361; 96372; 96374; 96375; 96376; C9113; G0378; J0131; J1650; J1885; J2405

== ENCOUNTER 2019-11-11 15:38 | Observation (INO) | payer BC, OTHER ==
[~2019-11-11 15:38] MED LIST: Iopamidol-370 76% 500 ML 1 ML ONE
[2019-11-11] MEDS ORDERED: Ondansetron ODT 8 MG TAB PO PRN (16:17)
[2019-11-11] MEDS ORDERED: Ondansetron PF 4 MG/2 ML Vial SLOW IVP PRN (16:17)
[2019-11-11] MEDS ORDERED: Morphine 2 MG/ML SYRINGE SLOW IVP PRN (16:19)
[2019-11-11 16:45] VITALS: BMI 42.1
[2019-11-11 17:02] LABS: #Basophils 0.1 thou/uL (0.0-0.2); #Eosinphils 0.1 thou/uL (0.0-0.7); #Lymphocytes 3.3 thou/uL (1.20-3.40); %Basophils 0.8 % (0.0-1.0); %Eosinophils 0.5 % (0.0-10.0); %Lymphocytes 26.6 % (21.0-51.0); %Neutrophils 64.1 % (42.0-75.0); Hemoglobin 15.1 g/dL (12.0-16.0); Mean Corpuscular HGB CONC 31.2 g/dL (32.0-36.0); Mean Corpuscular Hemoglobin 30.4 pg (27.0-31.0); Mean Corpuscular Volume 97.5 fL (78.0-98.0); Mean Platelet Volume 7.6 fL (7.4-10.4); Platelet Count 340 thou/uL (130-400); RBC Distribution Width 14.5 % (11.5-14.5); Red Blood Cell (RBC) Count 4.97 mill/uL (4.20-5.40); White Blood Cell (WBC) Count 12.4 thou/uL (4.8-10.8)
[2019-11-11] MEDS: Lactated Ringer's 1,000 ML IV SCH (17:02)
[2019-11-11 17:28] LABS: ALT (SGPT) 19 U/L (8-55); AST (SGOT) 26 U/L (5-34); Albumin 3.9 g/dL (3.5-5.0); Alkaline Phosphatase 157 U/L (40-110); Anion Gap 16 mmol/L (10-20); BUN (Urea Nitrogen) 10 mg/dL (7.0-18.7); Bilirubin, Total 0.5 mg/dL (0.2-1.2); Calc. Creatinine Clearance 136 mL/min (70-130); Carbon Dioxide 22 mmol/L (22-29); Chloride 101 mmol/L (98-107); Estimated GFR-MDRD 67; Globulin 5.2 g/dL (2.4-3.5); Glucose 106 mg/dL (70-105); Lipase 33 U/L (8-78); Potassium 4.4 mmol/L (3.5-5.1); Protein, Total 9.1 g/dL (6.0-8.3); Sodium 135 mmol/L (136-145)
[2019-11-11] MEDS ORDERED: Piperacillin/Tazobactam 3.375 GM in Sodium Chloride 0.9% 100 ML IVPB SCH (18:00)
[2019-11-11] MEDS: Ketorolac Tromethamine 30 MG/ML VIAL IVP PRN (18:06)
--- NOTE | 2019-11-11 20:10 | CT ---
CT of the abdomen and pelvis: 11/11/2019 COMPARISON: None HISTORY: Midline abdominal pain with radiation into the left flank TECHNIQUE: Axial CT imaging at 5 mm intervals from lung bases through pubic symphysis with intravenou s and oral contrast. Coronal and sagittal reformatted imaging obtained. FINDINGS: Mild nonspecific linear density noted within the left lower lobe and the right middle lobe. Cholecystectomy clips are present. There is a gastric suture line present. No free intraperitoneal air. There is a small bowel suture line within the anterior mid abdomen. The hepatic parenchyma demonstrates a heterogeneous attenuation with scattered areas of geographic hy podensity suggesting extensive multifocal hepatic fatty infiltration. The intrahepatic portal vein within the left lobe is difficult to visualize and may be thrombosed. There is diffuse mild nonspecific splenic hypodensity. There is a focal area of irregularity involvin g the medial superior aspect of the spleen which may signify age indeterminant laceration or splenic infarction. There is a very small focus of gas within the left upper quadrant on axial image 14 measuring 1.6 cm in transverse dimension abutting the medial aspect of the spleen just superior to and posterior to the gastric fundus, just superior to a gastric suture line. This may represent a very small abscess o r focus of extraluminal gas. The pancreas and adrenal glands appear grossly unremarkable. The kidneys appear grossly unremarkable. There is linear hypodensity dorsal to the body and tail of the pancreas which likely represents an oc cluded splenic vein, with the global hypodensity of the spleen possibly on the basis of diffuse splenic infarction. There is no evidence for bowel obstruction. The appendix appears unremarkable. There is a cystic lesion associated with the left ovary measuring approximately 3.5 cm. Review of the osseous structures demonstrates no discrete lytic or blastic lesion. 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 The spleen is relatively hypoenhancin g and enlarged, which may reflect global splenic ischemia/infarction. Focal area of hypodensity along the superior margin of the spleen may signify a focal infarct or age indeterminant area of sple ulises laceration. Nonspecific heterogeneity of the hepatic parenchyma, which may be on the basis of patchy fatty infilt ration and/or vascular in nature. An area of intrahepatic portal vein thrombosis cannot be excluded within the left lobe. Follow-up abdominal MRI with and without contrast suggested. Hepatic/splenic Do ppler ultrasound may be beneficial as well. Questionable small fluid collection adjacent to the spleen within the left upper quadrant as detailed above. CODE T
[2019-11-11] MEDS: Apixaban 5 MG TAB PO SCH (20:39)
[2019-11-11] MEDS: Pantoprazole 40 MG VIAL IVP SCH (20:39)
--- NOTE | 2019-11-11 21:40 | HP ---
HISTORY OF PRESENT ILLNESS: Kaela Roberts is a 44-year-old female, who on 09/04/2019 underwent a laparoscopic Ann Marie-en-Y gastric bypass, 150 cm Ann Marie limb for morbid obesity, history of GERD, diabetes mellitus, hypertension, preoperative weight 302 pounds, 58 BMI; almost down to 277 pounds, 49 BMI; currently on this visit 238 pounds, 42 BMI. Total weight loss 64 pounds, 36% excess body weight loss. The patient presents to my office today with epigastric right upper quadrant pain, back radiation, nausea. She has not had fever. Her pain is fairly significant and exam revealed some guarding without peritoneal signs. Her incisions look good. She is tolerating liquids and urinating non-dark urine. Today, the patient has resolved her diabetes, hypertension, and GERD. She is still taking PPIs prophylactic. The patient was in [place] on her job when she experienced nausea and went to [facility], 10/26/2019 with complaints of nausea and vomiting without pain. She did not have a fever until being admitted to the hospital. While in the emergency room for that evaluation, her white count was 11, and patient underwent a CAT scan with oral and IV contrast revealed changes consistent with cholecystectomy, gastric bypass, and a nonspecific splenic density with normal kidneys and fluid collection, 3.1 x 2.6 x 4.7 cm in the left upper quadrant with a small focus of air to closely approximate the superior destin of the gastric remnant. At that hospital, they consulted interventional GI and upper GI obtained and there was no evidence of leak on the upper GI or the CAT scan. The density seen on CAT scan was not amenable to CT-guided drainage and she was sent home on oral antibiotics and follow up with me, I saw her on 11/05/2019. Since that time, 2 days ago, she finished her oral antibiotics. She discontinued her Flagyl last week as it was disagreeing with her. She completed her other antibiotic. Today, in the office, weight 238 pounds, blood pressure 123/78, heart rate 108, temperature 97.3 degrees. She complains of pain epigastric. ALLERGIES: IMITREX. SOCIAL HISTORY: Tobacco none. Alcohol none. She has tobacco cessation. She is , has 2 children. Alcohol use none. MEDICATIONS: The patient is on; 1. Unithroid 112 mcg a day. 2. Nexium 40 mg a day. 3. Fioricet as needed for migraines. PAST MEDICAL HISTORY: Resolved diabetes with successful weight loss, hypothyroidism, vitamin D deficiency, history of anxiety, migraines, resolved hypertension with weight loss, resolved diabetes with weight loss, resolved GERD with weight loss. PAST SURGICAL HISTORY: Hysterectomy in 2006, bunionectomy in 2015, cholecystectomy in 2014, hernia repair, laparoscopic gastric bypass on 09/04/2019. REVIEW OF SYMPTOMS: Noncontributory. PHYSICAL EXAMINATION: VITAL SIGNS: Weight 238 pounds, blood pressure 123/78, heart rate 108, temperature 97.3 degrees. GENERAL: The patient is in mild discomfort, although not febrile and in no acute distress. She is breathing comfortably. LUNGS: Clear to auscultation. CARDIAC: Regular rhythm without murmur or gallop. ABDOMEN: Soft, mild tenderness with voluntary guarding in right upper quadrant and epigastrium. ABDOMEN: Lower abdomen soft. Surgical wounds well healed. No evidence of hernia. EXTREMITIES: Unremarkable. ASSESSMENT AND PLAN: Postoperative pain. This is not tolerable and requires admission to the hospital for pain control and evaluation. She had a fluid collection on past evaluation as noted above, and we will repeat her CAT scan for further evaluation. Further recommendations based on clinical course. We will obtain blood cultures, laboratories, lipase and await her CAT scan. We will plan hydration. Job ID: [id number]
[2019-11-12] MEDS: Lactated Ringer's 1,000 ML IV SCH ×2 (02:43→09:06)
[2019-11-12] MEDS: Ketorolac Tromethamine 30 MG/ML VIAL IVP PRN ×2 (05:19→11:09)
[2019-11-12] MEDS ORDERED: Enoxaparin Sodium 40 MG/0.4 ML SYRINGE SC SCH (09:00)
[2019-11-12] MEDS: Pantoprazole 40 MG VIAL IVP SCH (09:07)
[2019-11-12] MEDS: Apixaban 5 MG TAB PO SCH (09:07)
[2019-11-12] MEDS ORDERED: HYDROcodone/Acetaminophen 5/325 mg Tablet PO PRN (10:08)
[2019-11-12 10:42] VITALS: BP 112/72; TEMP 98.1
--- NOTE | 2019-11-12 11:06 | PRG ---
DATE OF SERVICE: 11/12/2019 SUBJECTIVE: Kaela Roberts today is feeling somewhat better. The upper abdominal pain that she is experiencing has improved. CAT scan of the abdomen and pelvis p.o. and IV contrast yesterday revealed a 1 cm to 1.5 cm density near the hilum of the spleen near her gastric remnant and when compared with the report from a CAT scan a few weeks prior in [place], this is markedly decreased in size. There were no inflammatory changes around it. I have reviewed her CAT scan, discussed with the radiologist and this is probably no concern. What is found on a CAT scan of concern is that she appears to have a splenic vein thrombosis with equivocal involvement of the portal vein. She was started on Eliquis 5 mg p.o. b.i.d. last night. She has had a prior CAT scan of the abdomen and pelvis in [place] and upper GI revealing absence of any gastric leak. Her job involves travel and she is planning on travelling to [place] upcoming weekend. She feels that currently she can travel and perform her duties at work and a note was given her to indicate such. She was given a prescription for [place] 5/325, #40 to take as needed. She is 2-1/2 months out from her gastric bypass. OBJECTIVE: VITAL SIGNS: Temperature 97.9, pulse 76, and blood pressure 108/75. GENERAL: She is tolerating her bariatric diet. LUNGS: Clear to auscultation. CARDIAC: Regular rate and rhythm without murmur or gallop. ABDOMEN: Soft, less tender than in the office. Certainly, no peritoneal signs. Incisions look good without hernias. LABORATORY DATA: White count 12 and hemoglobin 15. Basic metabolic profile normal. ASSESSMENT AND PLAN: Splenic vein thrombosis, on anticoagulation. Follow up in my office per appointment in the next 2 to 4 weeks. Continue bariatric diet. Job ID: [id number]
--- NOTE | 2019-11-13 03:19 | DIS ---
DATE OF ADMISSION: 11/11/2019 DATE OF DISCHARGE: 11/12/2019 DISCHARGE DIAGNOSES: 1. Splenic vein thrombosis equivocal progression in the portal vein. 2. Abdominal pain secondary to above. 3. Splenic hilar density probably postoperative of no consequence, decreased in size relative to CAT scan in [place] a few weeks ago, decreased from 4.5 to 1.5 cm without inflammatory changes. Discharge hemoglobin 15, white count 12 yesterday. Antibiotics discontinued yesterday. HISTORY: 44-year-old female, undergoing evaluation for Ann Marie-en-Y gastric bypass, bypass performed because of reflux. She enjoyed tobacco cessation preoperatively. Patient underwent laparoscopic Ann Marie-en-Y gastric bypass, 150 cm Ann Marie limb for morbid obesity, GERD, diabetes mellitus, hypertension. Preoperative weight 302 pounds, 58 BMI. By this time, 238 pounds, 42 BMI, total weight loss 64 pounds, representing 36% excess body weight loss. She was working in [place] 2 to 3 weeks ago and presented to the emergency room with abdominal pain. CAT scan demonstrated a 4.5 cm splenic hilar mass next to the gastric remnant. She had a white count of 12 on admission. She did develop a fever while in the hospital. However, CAT scan of the abdomen and pelvis with contrast revealed only the splenic hilar changes and upper GI was negative for leak as well as her CAT scan. She was discharged home with antibiotics. Her Flagyl orally discontinued after a week because of intolerance. She completed her other antibiotic a few days prior to the office visit. She developed upper abdominal pain and was admitted repeating her CAT scan, oral IV contrast revealing intact Ann Marie-en-Y gastrojejunostomy without evident leak and without inflammatory changes. The splenic hilar density had decreased in size from 4.5 to 1.5 cm. There were no inflammatory changes. CAT scan did reveal splenic vein thrombosis with equivocal progression of the portal vein. She was started on Eliquis. Zosyn discontinued. She has been discharged home at this time to resume her Unithroid, Nexium, Fioricet as needed, Eliquis five b.i.d., and [place] 5/325 for pain. Follow up in my office per appointment. Job ID: [id number]
== END 2019-11-12 12:05 | disposition home or self-care (01) ==
LOC: SURG B 15:51
PROVIDERS: ADMIT Specialist; ATTEND Specialist
DX: I82.890 Acute embolism and thrombosis of other specified veins (principal); R93.3 Abnormal findings on diagnostic imaging of other parts of digestive tract; K21.9 Gastro-esophageal reflux disease without esophagitis; G43.909 Migraine, unspecified, not intractable, without status migrainosus; E03.9 Hypothyroidism, unspecified; E66.01 Morbid (severe) obesity due to excess calories; Z68.41 Body mass index [BMI] 40.0-44.9, adult; Z79.899 Other long term (current) drug therapy; Z87.891 Personal history of nicotine dependence; Z88.8 Allergy status to other drugs, medicaments and biological substances; Z91.048 Other nonmedicinal substance allergy status; Z98.84 Bariatric surgery status
CPT/HCPCS: 36415; 74177; 80053; 83690; 85025; 87040; 90471; 90732; 96365; 96366; 96375; 96376; C9113; G0009; G0378; J1885; J2405; J2543; J3490; Q9967

== ENCOUNTER 2020-01-31 14:31 | Outpatient (CLI) | payer OTHER ==
--- NOTE | 2020-01-31 17:19 | CT ---
CT ABDOMEN WITH CONTRAST: 01/31/20 HISTORY: Pulmonary vein thrombosis. I82.890. COMPARISON: CT abdomen and pelvis 11/11/19. FINDINGS: Lung bases are clear. No pericardial effusion. Focal fatty infiltration hepatic segment IVb near the falciform ligament. There is recanalization of the umbilical vein with minimal peripheral web formation remaining. There is large mass in hepatic segment 8 abutting the capsule. A focal transient hepatic intensity di fference is also a possibility. This measures up to 4.6 cm in size. Prior gastric surgery. Either a c ontained perforation along the greater curvature versus a large diverticulum near the suture. This ex tends into the medial aspect of the spleen with mild adjacent inflammatory response. IMPRESSION: 1. Partially recanalized splenic vein with peripheral web remaining. 2. Other large mass in hepatic segment VIII versus residual of transient hepatic attenuation dif ference due to peripheral portal venous thrombosis. A follow-up liver protocol MRI is recommended. 3. Concern for a containing perforation/leak along the greater curvature near the suture involvi ng the medial aspect of the superior pole of the spleen. This has a similar appearance to the 11/11/19 exam. Code T POS: HOME
== END 2020-01-31 14:32 | disposition home or self-care (01) ==
LOC: SCSCT 14:31
PROVIDERS: ATTEND Specialist
DX: I82.890 Acute embolism and thrombosis of other specified veins (principal); I81 Portal vein thrombosis
CPT/HCPCS: 74160

== ENCOUNTER 2020-03-24 07:38 | Outpatient (CLI) | payer OTHER ==
--- NOTE | 2020-03-24 10:35 | MRI ---
MRI ABDOMEN WITH AND WITHOUT IV CONTRAST: Date: 03/24/2020 HISTORY: Hepatic lesion. FINDINGS: Correlation is made with the CT scan of 01/31/2020 and 11/11/2019. There is a focal area of fatty infiltration adjacent to the falciform ligament. No hepatic mass or ab normal biliary ductal dilatation is seen. No portal or splenic venous thrombosis is seen. The patient is post cholecystectomy. There is a small focal area of decreased T1 and T2 signal in the medial aspect of the upper spleen, l ikely due to infarction/old laceration. The pancreas, adrenal glands, and kidneys are normal. No free fluid or lymphadenopathy seen. The abdominal aorta is of normal caliber. The bone marrow signal is n ormal. IMPRESSION: No evidence of hepatic mass. POS: [facility]
== END 2020-03-24 07:39 | disposition home or self-care (01) ==
LOC: SCSMRI 07:38
PROVIDERS: ATTEND Specialist
DX: K76.9 Liver disease, unspecified (principal)
CPT/HCPCS: 74183